=== PATIENT | female | born 1965 | race Caucasian/White ===

== ENCOUNTER 2019-08-07 19:34 | Emergency (ER) | payer SELFPAY ==
[2019-08-07] VITALS (7 sets, daily range): BP systolic 137–185; BP diastolic 97–123; PULSE 98–109; RESP 16–18; TEMP 36.5; O2SAT 94–98
--- NOTE | 2019-08-07 19:47 | ED_ITS ---
Entered by Reba Shine, acting as scribe for HPI - Wound/Laceration General: Chief Complaint: Wound/Laceration Stated Complaint: dog bite Time Seen by Provider: 08/07/19 19:47 Source: patient Mode of arrival: ambulatory Limitations: no limitations History of Present Illness: HPI narrative: 53 yo f came to the er for a laceration to the mouth. 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 Pt sates that she was trying to pull the dog back and her hand got twisted in the collar and she thinks that the dog thought that she was trying to hurt someone and the dog attacked. Pt has 2 open lacs on her lip. 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) Location: face (top lip in 2 spots) Associated symptoms: Denies chills, fever(s), nausea or vomiting Review of Systems Const: Denies: fever or chills Eyes: Denies: change in vision or blurry vision ENMT: Reports: swelling of lips/tongue; Denies: painful swallowing, bleeding gums, dental pain, Change in hearing or nose bleeds Card: Denies: chest pain, palpitations or irregular heart rhythm Resp: Denies: shortness of breath, productive cough, non-productive cough or wheezing GI: Denies: abdominal pain, nausea or vomiting : Denies: painful urination Musc: Denies: neck pain Skin/Breast: Denies: rash or itching Neuro: Denies: headache Psych: Reports: anxiety PFSH ED PFSH: Social History Smoking and tobacco status: current every day smoker Physical Exam Const: GENERAL APPEARANCE: well developed ORIENTATION/CONSCIOUSNESS: Yes oriented to person, Yes oriented to place and Yes oriented to time HENMT: COMMON NORMALS: normocephalic, external ears normal and external nose normal HEAD & SCALP: normocephalic NOSE: external nose normal and no nasal discharge EXTERNAL EAR: Yes external ears normal MOUTH: tongue normal and other TEETH & GINGIVA: no abnormal tooth and associated gingiva THROAT: posterior oropharynx normal; no peritonsillar mass Eye: COMMON NORMALS: PERRL, EOMs intact bilaterally and conjunctivae normal EYELID: eyelids normal CONJUNCTIVA: Yes conjunctivae normal PUPIL: Yes PERRL Neck/C-Spine: CERVICAL SPINE: Yes normal cervical lordosis and No cervical spine tenderness Chest: COMMONS NORMALS: inspection of chest normal CHEST: No tenderness Resp: COMMON NORMALS: clear to auscultation bilaterally EFFORT & INSPECTION: No tachypneic, No respiratory distress, No retractions, No uses accessory muscles and No tracheal deviation AUSCULTATION: clear to auscultation bilaterally, no rhonchi, no wheezes and lung sounds not diminished Cardio: COMMON NORMALS: regular rate and regular rhythm RATE: regular rate RHYTHM: regular rhythm HEART SOUNDS: no murmurs PERIPHERAL PULSES: radial pulses present GI: INSPECTION: No abdominal distension AUSCULTATION: No hyperactive bowel sounds and No hypoactive bowel sounds PALPATION: No guarding and No rigid PERCUSSION: no dullness to percussion and no tympanic to percussion : COMMON NORMALS: Yes no CVA tenderness BLADDER/KIDNEY EXAM: Yes no CVA tenderness Back/Pelvis: COMMON NORMALS: no CVA tenderness Neuro: SENSORIUM/ORIENTATION: Yes oriented to person, Yes oriented to place and Yes oriented to time Psych: COMMON NORMALS: mental status grossly normal Skin: COMMON NORMALS: no rashes or lesions noted GENERAL SKIN EXAM: no rashes or lesions noted Procedures Laceration Laceration 1: Site: lip (upper) Side (If applicable): right Size (cm): 4 Description: linear and involves alfred border Depth: [id number] Local Anesthetic: lidocaine 1% and bupivacaine 0.5% Amount of anesthesia used (mL): 5 Pre-repair: wound explored and irrigated extensively Skin layer closed with: nylon and vicryl Size (cm): 5-0 and 6-0 Number of sutures: 11 Technique: simple, interrupted Course Vital Signs: Vital signs: Vital Signs Temperature 97.7 F 08/07/19 19:41 Pulse Rate 100 08/07/19 22:10 Respiratory Rate 18 08/07/19 22:10 Blood Pressure 137/98 08/07/19 22:10 Pulse Oximetry 94 08/07/19 22:10 MDM - Wound/Laceration MDM Narrative: Medical decision making narrative: she did well. treated with augmentin. Discharge Plan Discharge Patient Disposition: Home, Self-Care Clinical Impression: Laceration Dog bite Qualifiers: Encounter type: initial encounter Qualified Code(s): W54.0XXA - Bitten by dog, initial encounter Condition: Stable Prescriptions: New Augmentin 875-125 mg tablet 1 tab PO BID Qty: 14 RF: 0 Percocet 5-325 mg tablet 1 tab PO Q6H PRN (Reason: pain) Qty: 10 RF: 0 Discharge Orders: Discharge Order (Routine); Ordered 08/07/19 Ordered By: Orlando Galeas Referrals: Roberto Johns MD [Family Provider] - 4-7 days Discharge Diet: Usual diet Patient Instructions: Animal Bite (ED), Laceration (ED) Activity Restrictions/Additional Instructions: You may return to work on Friday. Keep wound dry for 24 hours, then wash with soap and running water. Do not soak. Antibiotics as directed. Return for worsening swelling, pain, drainage despite treatment. You should have a wound check in 5 days or so. Sutures should come out in around 7 days. Stand Alone Forms: Work/School Release Discharge Date/Time: 08/07/19 22:11 Coding Level of Care Code ED Certified Flex Endoscope Reprocessor for Chg Fwd Exam Comprehensive The documentation recorded by the Rl ceron Stephanie Lyn, accurately reflects the service I personally performed and the decisions made by Adal petersen Jeremy John, DO Aug 07, 2019 19:34
[2019-08-07] MEDS: ondansetron 2 mg/ML SDV 2 mL 4 MG IVP (19:59)
[2019-08-07] MEDS: fentaNYL 50 mcg/mL INJ 2mL 100 MCG IVP ×2 (19:59→20:52)
[2019-08-07] MEDS: oxyCODONE-APAP 5-325 mg Tablet 2 TAB PO (22:03)
[2019-08-07] MEDS: amoxicillin-clav 875-125 mg Tablet 1 TAB PO (22:04)
== END 2019-08-07 22:11 | disposition home or self-care (01) ==
PROVIDERS: Emergency Provider Emergency Medicine; Family Provider Family Medicine
DX: S01.511A Laceration without foreign body of lip, initial encounter (principal); F17.200 Nicotine dependence, unspecified, uncomplicated; W54.0XXA Bitten by dog, initial encounter
CPT/HCPCS: 12052; 12345; 96374; 96375; 96376; 99282; 99283; J2405; J3010

== ENCOUNTER 2020-04-15 13:58 | Observation (INO) | payer MEDICAID, SELFPAY ==
[2020-04-15] VITALS (14 sets, daily range): BP systolic 128–157; BP diastolic 73–98; PULSE 64–100; RESP 16–20; TEMP 36.2–37.1; O2SAT 90–97; BMI 27.6
--- NOTE | 2020-04-15 | SCC_ITS ---
Cystoscopy, RIGHT: Retrograde ureteropyelogram, ureteroscopy, ureteral stent placement 47.9 seconds of fluoroscopic guidance, for a cumulative dose of 12.99 mGy, was provided to Dr. Spence by the radiology department. C-arm images of the abdomen were saved for the patient's permanent record. [facility]
--- NOTE | 2020-04-15 14:13 | CTR_ITS ---
PROCEDURE INFORMATION: Exam: CT Abdomen And Pelvis With Contrast Exam date and time: 04/15/2020 2:25 PM Age: 54 years old Clinical indication: Abdominal pain; Epigastric; Prior surgery; Surgery date: 6+ months; Surgery type: Csection; Patient HX: Abd pain x2 wks TECHNIQUE: Imaging protocol: Computed tomography of the abdomen and pelvis with intravenous contrast. Radiation optimization: All CT scans at this facility use at least one of these dose optimization techniques: automated exposure control; mA and/or kV adjustment per patient size (includes targeted exams where dose is matched to clinical indication); or iterative reconstruction. Contrast material: OMNIPAQUE 300; Contrast volume: 95 ml; Contrast route: INTRAVENOUS (IV); COMPARISON: No relevant prior studies available. RADIATION DOSE METRICS: Total DLP (mGy-cm): 527.62 FINDINGS: Pleural space: Small right pleural effusion with adjacent compressive atelectasis. Liver: Regional decreased attenuation of the left hepatic lobe at the ligamentum teres suggestive of focal fatty infiltration. There are multiple well-circumscribed cyst with benign features in the liver the larger of which measures 3.1 cm. Follow-up is not necessary. Gallbladder and bile ducts: Normal. No calcified stones. No ductal dilation. Pancreas: Normal. No ductal dilation. Spleen: Normal. No splenomegaly. Adrenal glands: Normal. No mass. Kidneys and ureters: Right kidney enhances less prominently compared to the left and is somewhat inhomogeneous. There is prominent enhancement of the right ureteral urothelium. Stomach and bowel: Unremarkable. No obstruction. No mucosal thickening. Appendix: No evidence of appendicitis. Intraperitoneal space: Unremarkable. No free air. No significant fluid collection. Retroperitoneal space: There are peripherally enhancing fluid collections in the right retroperitoneal spaces the largest of which measures 16.1 x 9.7 cm in the craniocaudad/transverse dimensions, in the right perirenal space. These are suspicious for abscess formations. There is moderate to severe right hydronephrosis and hydroureter with adjacent inflammatory stranding. Vasculature: Unremarkable. No abdominal aortic aneurysm. Lymph nodes: There are multiple retroperitoneal lymph nodes some of which are enlarged and or rounded. These are more numerous on the right. Urinary bladder: Bladder wall is indistinct and thickened. Reproductive: There is complex fluid density in the endometrial canal fundal region measuring 6.1 cm in the transverse dimension. Bones/joints: Unremarkable. No acute fracture. Soft tissues: Unremarkable. CT/CT abdomen pelvis w con* [id number] IMPRESSION: 1. Findings as stated above are consistent with an ascending urinary tract infection involving the bladder, right ureter, and possibly right kidney. 2. There are multiple peripherally enhancing fluid collection suspicious for abscess formations along the right retroperitoneum. 3. There is complex fluid density in the endometrial canal at the fundal region. Consider pelvic ultrasound for further evaluation. 4. There is retroperitoneal lymphadenopathy. Radiation Dose CTDIVOL = (mGy): DLP = 527.62 (mGy-cm)
--- NOTE | 2020-04-15 14:34 | W.ED.ABDPA2 ---
HPI - Abdominal Pain General: Chief Complaint: Abdominal Pain Stated Complaint: ABDOMEN PAIN Time Seen by Provider: 04/15/20 14:06 History of Present Illness: HPI narrative: This patient is a 54-year-old female who comes in today with abdominal pain. Her symptoms started about 2 weeks ago after eating a salad. She began having pain across her whole abdomen and then radiating up her right side. The pain at night was severe and she vomited once. She had loss of appetite for about a week. She did not have any bowel movements for several days. She took some laxatives and now is having regular bowel movements again. She continues to have pain across her abdomen which is slightly worse on the right side. She said her appetite is back and she is able to eat without increased symptoms. She is not having any further vomiting. Bowel movements have been normal. No urinary symptoms. She is postmenopausal and her last regular period was about 4 years ago. She does have some spotting off and on and most recently had some spotting right before this episode of pain occurred. She said she is feeling a little better but pressure from her family and her boss made her come in today to get checked. She is worried that there is something serious causing her symptoms. She denies fever, chest pain, cough, shortness of breath. She does have back pain which she thinks is from sleeping in her recliner is sleeping in her bed is not comfortable with her abdominal pain. MD elicited complaint: abdominal pain Pertinent past history: constipation Onset (ago): week(s) (2) Pain Consistency: constant Location: Diffuse and RUQ Severity: moderate Quality: aching and fullness Radiation: none Migration to: no migration Exacerbating factors: nothing Relieving factors: nothing Associated Symptoms: Reports anorexia (With initial symptoms, not now) and bloating; Denies chills and fever(s) Review of Systems General: Reports: 10 or more systems reviewed and unremarkable except in HPI and below Const: Denies: fever(s), chills, fatigue or malaise Eyes: Denies: change in vision ENMT: Denies: odynophagia Card: Denies: chest pain or swelling of feet/ankles Resp: Denies: dyspnea, productive cough or non-productive cough GI: Reports: bloating : Denies: flank pain or difficulty voiding Musc: Denies: neck pain Skin/Breast: Denies: rash Neuro: Denies: headache(s), numbness in extremities or weakness in extremities Jose Manuel/Lymph: Denies: easy bruising or easy bleeding PFSH ED PFSH: Medical History (Updated 04/16/20 @ 08:46 by Louis Spence MD) Hypertension Surgical History (Updated 04/16/20 @ 08:46 by Louis Spence MD) History of History of ureter stent Extrinsic ureteral obstruction stented emergently on 04/15/2020. 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 Family History (Updated 04/15/20 @ 17:05 by Louis Spence MD) Other Diabetes Denies family history of Clotting disorder Anesthesia complication Social History (Updated 04/15/20 @ 17:06 by Louis Spence MD) Smoking and tobacco status: current every day smoker Lives independently: Yes Marital status details: Physical Exam Const: COMMON NORMALS: no acute distress, patient oriented x3, no limitations and alert GENERAL APPEARANCE: cooperative and comfortable HENMT: HEAD & SCALP: normal to inspection FACE & SINUS: normal facial exam Eye: GENERAL EYE: appearance normal, both eyes and all related structures Neck/C-Spine: COMMON NORMALS: supple, no meningeal signs and no JVD Chest: COMMONS NORMALS: normal inspection of the chest Resp: COMMON NORMALS: normal respiratory effort, No use of accessory muscles and clear to auscultation bilaterally AUSCULTATION: clear to auscultation bilaterally Cardio: COMMON NORMALS: no JVD, regular rate, regular rhythm and No murmurs present (Cardio) RATE: regular rate RHYTHM: regular rhythm GI: COMMON NORMALS: Normal to inspection, nondistended, normoactive bowel sounds present INSPECTION: Yes normal to inspection AUSCULTATION: Yes Hypoactive bowel sounds present PALPATION: Yes Firmness to palpation present (GI) and Yes Tenderness to palpation present (GI) Back/Pelvis: COMMON NORMALS: thoracic and lumbar spine normal to inspection Extremity: COMMON NORMALS: normal to inspection Neuro: COMMON NORMALS: patient oriented x3, moves all extremities, no focal motor deficits and no sensory deficits noted SENSORIUM/ORIENTATION: Yes alert MENINGEAL SIGNS: Yes no meningeal signs Psych: COMMON NORMALS: mental status grossly normal, cooperative and normal affect Skin: COMMON NORMALS: no rashes or lesions noted and turgor normal GENERAL SKIN EXAM: no rashes or lesions noted and turgor normal Course ED course: Patient with multiple concerning findings on her CT scan. The most pressing is a urinoma and leakage of urine into the peritoneum. Dr. Spence plans to take her to the OR right away for a stent. He asks me to consult Dr. Mims regarding the other findings on the CT. Dr. Mims requested an ultrasound before she goes to the OR in case he wants to try to do a biopsy or anything at that time. Patient understands the plan and is understandably anxious about the findings. Vital Signs: Vital signs: Vital Signs Temperature 98.3 F 04/16/20 09:27 Pulse Rate 73 04/16/20 09:27 Respiratory Rate 16 04/16/20 09:27 Blood Pressure 145/78 04/16/20 09:27 Pulse Oximetry 92 04/16/20 09:27 MDM - Abdominal Pain Lab Data: Labs: Lab Results 04/15/20 04/15/20 04/15/20 Range/Units 14:23 14:23 14:23 WBC 14.8 H (4.0-10.0) 10^3/ uL RBC 3.95 L (4.1-5.3) 10^6/u L Hgb 12.1 (11.5-15.3) g/dL Hct 36.7 L (37.0-47.0) % MCV 92.9 (81-99) fL MCH 30.6 (28.0-34.0) pg MCHC 33.0 (30.0-36.0) g/dL RDW 12.2 (12.1-15.1) % Plt Count 564 H (130-400) 10^3/c mm MPV 7.9 (7.4-10.4) fL Neut % (Auto) 85.3 % Lymph % (Auto) 7.4 % [place] % (Auto) 5.5 % Eos % (Auto) 0.3 % Baso % (Auto) 0.4 % Neut # (Auto) 12.67 H (1.8-7.7) 10^3/u L Lymph # (Auto) 1.1 (0.8-4.8) 10^3/u L [place] # (Auto) 0.8 (0.2-0.9) 10^3/u L Eos # (Auto) 0.0 (0.0-0.8) 10^3/u L Baso # (Auto) 0.1 (0.0-0.1) 10^3/u L Nucleated RBC % (a uto) 0 % Nucleated RBCs # 0.0 /100WBC Sodium 131 L (136-145) mmol/L Potassium 4.4 (3.5-5.1) mmol/L Chloride 94 L (98-107) mmol/L Carbon Dioxide 24 (22-29) mmol/L Anion Gap 17.4 (5-19) BUN 10 (6-20) mg/dL Creatinine 0.8 (0.5-0.9) mg/dL GFR Calculation 74.7 L (90-130) mL/min Glucose 213 H (65-115) mg/dL Calculated Osmolal ity 277 L (285-295) mOsm/k g Lactic Acid 1.4 (0.5-2.2) mmol/L Calcium 9.0 (8.5-10.5) mg/dL Total Bilirubin 0.3 (0.15-1.2) mg/dL AST 24 (0-32) U/L ALT 43 H (0-33) U/L Alkaline Phosphata se 108 H (35-105) IU/L Total Protein 7.2 (6.6-8.7) g/dL Albumin 3.6 (3.5-5.2) g/dL Globulin 3.6 (1.3-4.6) g/dL Lipase 33 (13-60) U/L Urine Color (Yellow) Urine Appearance (CLEAR) Urine pH (5-7) Ur Specific Gravit y (1.005-1.030) Urine Protein (Negative) Urine Glucose (UA) (Normal) Urine Ketones (Negative) Urine Blood (Negative) Urine Nitrate (Negative) Urine Bilirubin (Negative) Urine Urobilinogen (Negative) mg/dL Ur Leukocyte Jyotsna ase (Negative) Urine RBC (0-2) /hpf Urine WBC (0-5) /hpf Ur Squamous Epith Cells (0-5) /hpf Ur Transition Epit h Cell /hpf Amorphous Sediment Urine Bacteria (NONE) /hpf Urine Mucus /hpf 11/14/20 Range/Units 15:09 WBC (4.0-10.0) 10^3/ uL RBC (4.1-5.3) 10^6/u L Hgb (11.5-15.3) g/dL Hct (37.0-47.0) % MCV (81-99) fL MCH (28.0-34.0) pg MCHC (30.0-36.0) g/dL RDW (12.1-15.1) % Plt Count (130-400) 10^3/c mm MPV (7.4-10.4) fL Neut % (Auto) % Lymph % (Auto) % [place] % (Auto) % Eos % (Auto) % Baso % (Auto) % Neut # (Auto) (1.8-7.7) 10^3/u L Lymph # (Auto) (0.8-4.8) 10^3/u L [place] # (Auto) (0.2-0.9) 10^3/u L Eos # (Auto) (0.0-0.8) 10^3/u L Baso # (Auto) (0.0-0.1) 10^3/u L Nucleated RBC % (a uto) % Nucleated RBCs # /100WBC Sodium (136-145) mmol/L Potassium (3.5-5.1) mmol/L Chloride (98-107) mmol/L Carbon Dioxide (22-29) mmol/L Anion Gap (5-19) BUN (6-20) mg/dL Creatinine (0.5-0.9) mg/dL GFR Calculation (90-130) mL/min Glucose (65-115) mg/dL Calculated Osmolal ity (285-295) mOsm/k g Lactic Acid (0.5-2.2) mmol/L Calcium (8.5-10.5) mg/dL Total Bilirubin (0.15-1.2) mg/dL AST (0-32) U/L ALT (0-33) U/L Alkaline Phosphata se (35-105) IU/L Total Protein (6.6-8.7) g/dL Albumin (3.5-5.2) g/dL Globulin (1.3-4.6) g/dL Lipase (13-60) U/L Urine Color Yellow (Yellow) Urine Appearance Hazy A (CLEAR) Urine pH 7 (5-7) Ur Specific Gravit y 1.000 L (1.005-1.030) Urine Protein 1+ H (Negative) Urine Glucose (UA) Norm (Normal) Urine Ketones Negative (Negative) Urine Blood 3+ H (Negative) Urine Nitrate Negative (Negative) Urine Bilirubin Neg (Negative) Urine Urobilinogen Norm (Negative) mg/dL Ur Leukocyte Jyotsna ase 2+ H (Negative) Urine RBC 25-40 H (0-2) /hpf Urine WBC 80-100 H (0-5) /hpf Ur Squamous Epith Cells 25-40 H (0-5) /hpf Ur Transition Epit h Cell 5-10 /hpf Amorphous Sediment Not Reportable Urine Bacteria 2+ H (NONE) /hpf Urine Mucus 1+ /hpf Discharge Plan Discharge Patient Disposition: Admitted As Inpatient Admit Provider: Louis Spence Condition: Stable Discharge Diet: Usual diet Discharge Activity: Increase activity as tolerated Coding Level of Care Code ED Duty Officer for Neo Fwd Exam Comprehensive
[2020-04-15 14:35] LABS: Basophils # 0.1 10^3/uL (0.0-0.1); Basophils % 0.4 %; Eosinophils % 0.3 %; Hematocrit 36.7 % (37.0-47.0); Hemoglobin 12.1 g/dL (11.5-15.3); Lymphocytes # 1.1 10^3/uL (0.8-4.8); Lymphocytes % 7.4 %; Mean Corpuscular Hemoglobin 30.6 pg (28.0-34.0); Mean Corpuscular Volume 92.9 fL (81-99); Mean Platelet Volume 7.9 fL (7.4-10.4); Monocytes # 0.8 10^3/uL (0.2-0.9); Monocytes % 5.5 %; Neutrophils # 12.67 10^3/uL (1.8-7.7); Neutrophils % 85.3 %; Nucleated Red Blood Cells % 0 %; Platelet Count 564 10^3/cmm (130-400); Red Blood Count 3.95 10^6/uL (4.1-5.3); Red Cell Distribution Width 12.2 % (12.1-15.1); White Blood Count 14.8 10^3/uL (4.0-10.0)
[2020-04-15] MEDS: iohexol 300 mg/mL 100 mL Btl IV (14:35)
[2020-04-15 14:59] LABS: Alanine Aminotransferase 43 U/L (0-33); Albumin Level 3.6 g/dL (3.5-5.2); Alkaline Phosphatase 108 IU/L (35-105); Aspartate Amino Transferase 24 U/L (0-32); Blood Urea Nitrogen 10 mg/dL (6-20); Carbon Dioxide 24 mmol/L (22-29); Chloride 94 mmol/L (98-107); Globulin 3.6 g/dL (1.3-4.6); Glomerular Filtration Rate 74.7 mL/min (90-130); Glucose 213 mg/dL (65-115); Lipase 33 U/L (13-60); Osmolality Calculated 277 mOsm/kg (285-295); Sodium 131 mmol/L (136-145); Total Bilirubin 0.3 mg/dL (0.15-1.2); Total Protein 7.2 g/dL (6.6-8.7)
[2020-04-15 15:00] LABS: Lactic Sepsis W/Reflex 1.4 mmol/L (0.5-2.2)
[2020-04-15 15:04] LABS: Anion Gap 17.4 (5-19); Potassium 4.4 mmol/L (3.5-5.1)
[2020-04-15 15:28] LABS: Add Urine Microscopic? YES; Bilirubin Urine Neg (Negative); Blood Urine 3+ (Negative); Glucose Urine UA Norm (Normal); Ketones Urine Negative (Negative); Leukocyte Esterase Urine 2+ (Negative); Nitrate Urine Negative (Negative); Protein Urine 1+ (Negative); Urine Appearance Hazy (CLEAR); Urine Color Yellow (Yellow); Urobilinogen Urine Norm (Negative); pH Urine 7 (5-7)
[2020-04-15 15:36] LABS: RBC Urine 25-40 /hpf (0-2); WBC Urine 80-100 /hpf (0-5)
[2020-04-15] MEDS: sodium chloride 0.9% 1,000 ML 999 ML IV (15:36)
[2020-04-15 15:37] LABS: Bacteria Urine 2+ /hpf; Squamous Epithelial Cell Urine 25-40 /hpf (0-5)
[2020-04-15 15:38] LABS: Add Urine Culture? No; Mucus Urine 1+ /hpf
--- NOTE | 2020-04-15 16:19 | USR_ITS ---
PROCEDURE INFORMATION: Exam: US Nonobstetric Pelvis; Complete Exam date and time: 04/15/2020 4:47 PM Age: 54 years old Clinical indication: Pelvic pain; Prior surgery; Surgery date: 6+ months; Surgery type: H/o ; Additional info: Eval endometrial fluid collection TECHNIQUE: Imaging protocol: Transabdominal pelvic nonobstetric ultrasound. Complete exam. Real time ultrasound with image documentation. COMPARISON: CT abdomen pelvis w con* [id number] 04/15/2020 2:33 PM FINDINGS: Uterus/cervix: The uterus measures 12.1 x 6.6 x 8.3 cm. There is a complex fluid collection in the endometrial canal in the region of the uterine fundus measuring 3.5 x 3.8 x 7.1 cm. There are ill-defined heterogeneous regions in the mid uterine myometrium below the cystic lesion containing calcifications. Right adnexa: Not well seen. Left adnexa: Not well seen. Intraperitoneal space: No intraperitoneal free fluid. Urinary bladder: Bladder is more optimally visualized on the CT scan. Please see that report. US/US pelvic complete* [id number] IMPRESSION: 1. There is a complex fluid collection in the endometrial canal in the region of the uterine fundus. Ob Gyne consult recommended. 2. Heterogeneous regions in the uterine myometrium containing calcifications are not well seen however may represent uterine fibroids.
--- NOTE | 2020-04-15 16:55 | P.HP_ITS ---
Providers/Chief Complaint Admitting Physician: Bebe Primary Care Provider: Ora WESLEY Chief Complaint: ABDOMEN PAIN History of Present Illness Megan Dillon is a 54 year old female who I evaluated for the first time tonight at the request of the emergency department for right ureteral obstruction of unclear etiology (possible extrinsic obstruction), urinary extravasation, and abnormal uterus with pelvic lymphadenopathy on CT scan. She presented with complaints of at least 2+ weeks of abdominal pain more right greater than left but also fairly diffuse abdominal pain. No fever or chills. Has been feeling poorly. Denies unexplained weight loss. Also reports that she has had increasing urinary frequency and associates some of that with onset of use of blood pressure medication. Denies a history of stones. Her last Pap smear pelvic exam per her report was >20 years ago. Work-up in the emergency department: 1. 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 - Abnormal uterus with complex fluid density in the endometrial canal - Retroperitoneal lymphadenopathy right greater than left. 2. WBC 14.8, hemoglobin 12.1, glucose 213, ALT 43 alkaline phosphatase 108, urinalysis showed 25-40 RBCs, 8200 white cells, urine specimen was contaminated there with 25-40 epithelial cells. 2+ bacteria but nitrite negative. 3. Physical exam: Abdominal tenderness but no evidence of surgical abdomen. Right pain > left. Given the above findings and significant symptoms I recommended cystoscopy, right retrograde ureteropyelogram, right ureteral stent placement if possible. Pelvic ultrasound is pending. I believe the request has been made for gynecology to become involved at least by looking at the CT scan and see if there is anything in addition to the above that they would prefer to be done. Review of Systems Const: Reports: malaise; Denies: fever(s) or chills Eyes: Denies: change in vision or blurry vision ENMT: Reports: throat pain Card: Denies: chest pain, palpitations or irregular heart rhythm Resp: Denies: dyspnea, productive cough or hemoptysis GI: Reports: abdominal pain and nausea : Reports: flank pain and urinary frequency; Denies: dysuria Musc: Denies: joint redness or joint warmth Skin/Breast: Denies: rash or changing lesions Neuro: Denies: headache(s), confusion, Slurred speech present or seizure-like activity Psych: Reports: anxiety and depression Endo: Denies: flushing Jose Manuel/Lymph: Denies: easy bruising or easy bleeding All/Imm: Denies: urticaria or acute wheezing Medications/Allergies Home Medications Medication Instructions Recorded Confirmed Last Taken Type escitalopram oxalate 10 mg PO DAILY 04/15/20 04/15/20 04/14/20 History metoprolol tartrate 25 mg PO BID 04/15/20 04/15/20 04/15/20 History Allergies Allergy/AdvReac Type Severity Reaction Status Date / Time No Known Allergies Allergy Unverified 04/15/20 14:44 PFSH Acute PFSH: Medical History (Updated 04/15/20 @ 17:11 by Louis Spence MD) Hypertension Surgical History (Updated 04/15/20 @ 17:05 by Louis Spence MD) History of Family History (Updated 04/15/20 @ 17:05 by Louis Spence MD) Other Diabetes Denies family history of Clotting disorder Anesthesia complication Social History (Updated 04/15/20 @ 17:06 by Louis Spence MD) Smoking and tobacco status: current every day smoker Lives independently: Yes Marital status details: Vitals/I&O/Wt Last Vital Signs Temp 97.9 F 04/15/20 14:01 Pulse 88 04/15/20 15:39 Resp 18 04/15/20 15:39 BP 134/86 04/15/20 15:39 Pulse Ox 92 04/15/20 15:39 Weight last 48 hrs Weight 151 lb Physical Exam 2 Const: COMMON NORMALS: no acute distress, alert and well nourished GENERAL APPEARANCE: well kempt and well developed ORIENTATION/CONSCIOUSNESS: not confused HENMT: HEAD & SCALP: normocephalic and atraumatic Eye: COMMON NORMALS: conjunctivae normal and no scleral icterus Neck/C-Spine: COMMON NORMALS: full ROM GENERAL: Yes normal visual inspection Lymph: LYMPHATIC: no lymphadenopathy noted and no lymphedema noted Chest: COMMONS NORMALS: normal inspection of the chest Resp: COMMON NORMALS: normal respiratory effort EFFORT & INSPECTION: No l abored and No Actively coughing AUSCULTATION: clear to auscultation bilaterally (Coarse breath sounds) and no wheezes Cardio: COMMON NORMALS: no JVD, regular rate, regular rhythm and No murmurs p resent (Cardio) GI: PALPATION: Yes Soft to palpation, Yes Tenderness to palpation present (GI) Details: RLQ and RUQ and No Palpable mass present : BLADDER/KIDNEY EXAM: Yes bladder normal to palpation and Yes CVA tenderness on the right Extremity: COMMON NORMALS: no clubbing, cyanosis or edema Neuro: COMMON NORMALS: no focal motor deficits SENSORIUM/ORIENTATION: Yes alert Psych: COMMON NORMALS: mental status grossly normal APPEARANCE: Yes grossly normal and Yes well kempt ATTITUDE: Yes calm and Yes engaged Skin: COMMON NORMALS: no rashes or lesions noted and no jaundice Data : 04/15/20 14:23 04/15/20 14:23 A&P Assessment and plan (1) Hydronephrosis of right kidney: Evidence of severe obstruction of the right ureter. Cannot rule out a stone but do not see one on CT scan. 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 Status: Acute (2) Renal colic on right side: Consistent with renal colic although she does have more diffuse abdominal pain as well Status: Acute (3) Pelvic lymphadenopathy: Identified on CT scan. Etiology unclear Status: Acute (4) Abnormal ultrasound of uterus: Films were reviewed and consider the above information for this visit by gynecology and felt that there was no emergency for tonight but does need to be further worked up. We will plan on that as an outpatient basis pending tonig ht's results with stent placement etc. Status: Acute (5) Depression with anxiety: Status: Acute Attestations Medical Necessity Statement*: Patient was having debilitating pain progressive over the last couple weeks and has high-grade right ureteral obstruction requiring drainage. 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
--- NOTE | 2020-04-15 17:14 | ANES.PREANE2 ---
Pre-Anesthetic Assessment Pre-Anesthetic Assessment: Height/Weight: Height 1.57 m Weight 68.492 kg Temp Pulse Resp BP Pulse Ox 97.9 F 88 18 154/98 90 04/15/20 14:01 04/15/20 15:39 04/15/20 17:01 04/15/20 17:01 04/15/20 17:01 Preop Diagnosis: KS Proposed Procedure: Operation Date: 04/15/20 17:20 Proposed Procedures p Cystoscopy(Not Applicable) - Louis Spence MD s Retrograde Pyelogram(Right) - Louis Spence MD s Ureteral Stent Placement(Right) - Louis Spence MD s Possible Ureteroscopy(Right) - Louis Spence MD Was Beta [place] taken within 24 hours: Yes Last intake: 1200 food Last Intake: 14:00 Social: Social History: Alcohol (3 beer per day) and Tobacco Packs per day: 1ppd Pack years: 35+ Exam: Pre-Anes Outpt Exam: alert, oriented x 3, clear to auscultation bilaterally and regular rate & rhythm Airway: Submandibular: WNL Cervical ROM: WNL MP: 2 Dentition: Full Pulmonary: Pulmonary: None reported CV/HEM: CV/HEM: HTN : Comments: [place] Hepatic: Hepatic: None reported GI: GI: None reported Metabolic: Metabolic: None reported Musc/skel: Musc/skel: None reported Neuropsych: Neuropsych: Anxiety and Depression Anesthetic Plan: ASA status: 2E Anesthesia: Anesthesia Evaluation and General PFSH Anesthesia PFSH: Medical History (Updated 04/15/20 @ 17:11 by Louis Spence MD) Hypertension Surgical History (Updated 04/15/20 @ 17:05 by Louis Spence MD) History of Family History (Updated 04/15/20 @ 17:05 by Louis Spence MD) Other Diabetes Denies family history of Clotting disorder Anesthesia complication Social History (Updated 04/15/20 @ 17:06 by Louis Spence MD) Smoking and tobacco status: current every day smoker Lives independently: Yes Marital status details: Data Anesthesia CBC & Chem 7: 04/15/20 14:23 04/15/20 14:23 Other Labs: Laboratory Results - last 48 hr 04/15/20 04/15/20 04/15/20 14:23 14:23 14:23 WBC 14.8 H RBC 3.95 L Hgb 12.1 Hct 36.7 L MCV 92.9 MCH 30.6 MCHC 33.0 RDW 12.2 Plt Count 564 H MPV 7.9 Neut % (Auto) 85.3 Lymph % (Auto) 7.4 [place] % (Auto) 5.5 Eos % (Auto) 0.3 Baso % (Auto) 0.4 Neut # (Auto) 12.67 H Lymph # (Auto) 1.1 [place] # (Auto) 0.8 Eos # (Auto) 0.0 Baso # (Auto) 0.1 Nucleated RBC % (auto) 0 Nucleated RBCs # 0.0 Sodium 131 L Potassium 4.4 Chloride 94 L Carbon Dioxide 24 Anion Gap 17.4 BUN 10 Creatinine 0.8 GFR Calculation 74.7 L Glucose 213 H Calculated Osmolality 277 L Lactic Acid 1.4 Calcium 9.0 Total Bilirubin 0.3 AST 24 ALT 43 H Alkaline Phosphatase 108 H Total Protein 7.2 Albumin 3.6 Globulin 3.6 Lipase 33 Urine Color Urine Appearance Urine pH Ur Specific [place] Urine Protein Urine Glucose (UA) Urine Ketones Urine Blood Urine Nitrate Urine Bilirubin Urine Urobilinogen Ur Leukocyte Esterase Urine RBC Urine WBC Ur Squamous Epith Cells Ur Transition Epith Cell Amorphous Sediment Urine Bacteria Urine Mucus 04/15/20 15:09 WBC RBC Hgb Hct MCV MCH MCHC RDW Plt Count MPV Neut % (Auto) Lymph % (Auto) [place] % (Auto) Eos % (Auto) Baso % (Auto) Neut # (Auto) Lymph # (Auto) [place] # (Auto) Eos # (Auto) Baso # (Auto) Nucleated RBC % (auto) Nucleated RBCs # Sodium Potassium Chloride Carbon Dioxide Anion Gap BUN Creatinine GFR Calculation Glucose Calculated Osmolality Lactic Acid Calcium Total Bilirubin AST ALT Alkaline Phosphatase Total Protein Albumin Globulin Lipase Urine Color Yellow Urine Appearance Hazy A Urine pH 7 Ur Specific [place] 1.000 L Urine Protein 1+ H Urine Glucose (UA) Norm Urine Ketones Negative Urine Blood 3+ H Urine Nitrate Negative Urine Bilirubin Neg Urine Urobilinogen Norm Ur Leukocyte Esterase 2+ H Urine RBC 25-40 H Urine WBC 80-100 H Ur Squamous Epith Cells 25-40 H Ur Transition Epith Cell 5-10 Amorphous Sediment Not Reportable Urine Bacteria 2+ H Urine Mucus 1+ Cardiac Studies: No Data to Display
--- NOTE | 2020-04-15 17:22 | PM.OP ---
Operative Report Date of procedure: April 15, 2020 Pre-op Diagnosis: Right ureteral obstruction high-grade with refractory symptoms Procedure Done: Cystoscopy, RIGHT: Retrograde ureteropyelogram, ureteroscopy, ureteral stent placement Pathology: none sent Surgeon: Bebe Anesthesia: General Estimated blood loss: Minimal Urine output: Not measured Condition: stable Disposition: PACU Brief History: Megan is a 54-year-old white female who I evaluated for the first time tonight at the request of the emergency department for high-grade obstruction of her right ureter at the level apparently at the pelvis. Etiology is unclear. She does have some lymphadenopathy and abnormal uterus. She has a large fluid collection in the right retroperitoneum that appears to me to be consistent with a urinoma. There was some concern on the CT scan report about possible abscess but that does not appear to be the clinical picture. She does have a mildly elevated white count. Her urine was contaminated. [facility] [employer] [employer] was consulted and they look at the CT scan and ultrasound preoperatively and felt that work-up needed to be completed and could easily be done on outpatient basis. Gynecology on-call was delivering a baby at the time of this evaluation intraoperatively. Procedure: After emergent evaluation examination and obtaining of informed consent she was taken to the operating suite on 04/15/2020 where general anesthesia was administered without difficulty after appropriate timeout was performed, SCDs confirmed to be functioning, preoperative antibiotics administered, [id number] protocol confirmed. Prepped and draped in the usual sterile fashion in dorsolithotomy position paying careful attention to avoiding pressure points. 21 [place]ese cystoscope with 30 degree lens was introduced to the urethral meatus and advanced into the bladder under videoscopy. Bladder was systematically examined. There was a significant impression on the posterior aspect of the bladder extending from just below the dome to below the trigone consistent with the enlarged uterus seen on CT scan. Both orifices were identified with clear reflux. There was no intrinsic bladder pathology. An 8 [place]ese cone-tipped catheter was intubated into the right ureteral orifice for right retrograde ureteropyelogram: Just proximal to the right ureteral orifice there was a distinctly strictured/narrowed luminal area extending approximately 2-1/2 to 3 cm proximal where an abrupt transition to a very dilated ureter occurred. The ureter was dilated all the way up to the renal pelvis as consistent with the CT scan findings. There was no filling defect noted. Contrast was retained at the proximal aspect of the narrowed area Flexible tip guidewire was advanced up the right ureter and required a open ureteral catheter for enough torque to pass it through this area but this wire did advance easily after entering the ureteral orifice. The ureteral catheter was advanced to the mid ureter to provide some torque to pass the wire through the tortuous more proximal aspect into the upper pole calyx confirmed via fluoroscopic monitoring. The distal ureter was then dilated with a 15 Cong[place]ese 4 cm balloon with no waist at 4 kelvin. The balloon traversed the entire strictured area. A 7 [place]ese offset semirigid ureteroscope was then advanced over the guidewire through this area which was carefully inspected on both entry and withdrawal. There was no obvious intrinsic abnormality, dense stricture or intraluminal process such as a stone to account for this. It appeared to be extrinsic regarding the stricturing. The ureter proximal to this point was very dilated. The scope was passed up to the pelvic vessels and no stones were identified. No other pathology was seen. The cystoscope was then backloaded over the guidewire and a 7 [place]ese by 28 cm (to account for significant tortuosity) ureteral stent without string was then easily advanced over the guidewire through the cystoscope into appropriate position as confirmed via fluoroscopy and cystoscopy. Bladder was drained. She tolerated procedure without complications Was awakened in the operating room and returned to the recovery in stable condition. PLANS: 1. Observe overnight. A.m. labs. Symptomatic control as needed. 2. If she is doing well tomorrow will discharge with plan to follow-up with gynecology for further evaluation of the uterine abnormality, pelvic lymphadenopathy, and now evidence of what appears to be an extrinsic process to the right ureter.
[2020-04-15] MEDS: levofloxacin-dextrose 5 % 500 MG/100 ML PREMIX 100 MG IV (17:30)
--- NOTE | 2020-04-15 17:31 | SC_ITS ---
WS: [id number] AP C-arm images of the pelvis are submitted for evaluation. Radiographic contrast injection into the distal right ureter at the UV junction shows a probable stri cture of the distal right ureter. There is dilatation of the distal right ureter just above the stric ture. A small amount of contrast is seen in the right lateral aspect of the urinary bladder. SC/C-arm [place] for Urology IMPRESSION: 1. 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
[2020-04-15] MEDS: iohexol 300 mg/mL 50 mL Btl (OR ONLY) XX (17:48)
--- NOTE | 2020-04-15 17:56 | ANES.PREANE2 ---
Pre-Anesthetic Assessment Pre-Anesthetic Assessment: Height/Weight: Height 1.57 m Weight 68.492 kg Temp Pulse Resp BP Pulse Ox 97.1 F L 83 16 142/96 93 04/15/20 17:10 04/15/20 17:10 04/15/20 17:10 04/15/20 17:10 04/15/20 17:10 Preop Diagnosis: Right ureteral obstruction high-grade with refractory symptoms Proposed Procedure: Operation Date: 04/15/20 17:20 Proposed Procedures p Cystoscopy(Not Applicable) - Louis Spence MD s Retrograde Pyelogram(Right) - Louis Spence MD s Ureteral Stent Placement(Right) - Louis Spence MD s Possible Ureteroscopy(Right) - Louis Spence MD Familial anesthetic complications: none Was Beta [place] taken within 24 hours: Yes Last intake: 1200 Last Intake: 14:00 Social: Social History: Alcohol (3 beer daily) and Tobacco Packs per day: 1ppd Pack years: 35+ Exam: Pre-Anes Outpt Exam: alert, oriented x 3, clear to auscultation bilaterally and regular rate & rhythm Airway: Submandibular: WNL Cervical ROM: WNL MP: 2 Dentition: Full Pulmonary: Pulmonary: None reported CV/HEM: CV/HEM: HTN : : None reported Hepatic: Hepatic: None reported GI: GI: None reported Metabolic: Metabolic: None reported Musc/skel: Musc/skel: None reported Neuropsych: Neuropsych: Anxiety and Depression Anesthetic Plan: ASA status: 2E Anesthesia: General Risk of > 500 ml blood loss (7ml/kg in children): No PFSH Anesthesia PFSH: Medical History (Updated 04/15/20 @ 17:11 by Louis Spence MD) Hypertension Surgical History (Updated 04/15/20 @ 17:05 by Louis Spence MD) History of Family History (Updated 04/15/20 @ 17:05 by Louis Spence MD) Other Diabetes Denies family history of Clotting disorder Anesthesia complication Social History (Updated 04/15/20 @ 17:06 by Louis Spence MD) Smoking and tobacco status: current every day smoker Lives independently: Yes Marital status details: Data Anesthesia CBC & Chem 7: 04/15/20 14:23 04/15/20 14:23 Other Labs: Laboratory Results - last 48 hr 04/15/20 04/15/20 04/15/20 14:23 14:23 14:23 WBC 14.8 H RBC 3.95 L Hgb 12.1 Hct 36.7 L MCV 92.9 MCH 30.6 MCHC 33.0 RDW 12.2 Plt Count 564 H MPV 7.9 Neut % (Auto) 85.3 Lymph % (Auto) 7.4 [place] % (Auto) 5.5 Eos % (Auto) 0.3 Baso % (Auto) 0.4 Neut # (Auto) 12.67 H Lymph # (Auto) 1.1 [place] # (Auto) 0.8 Eos # (Auto) 0.0 Baso # (Auto) 0.1 Nucleated RBC % (auto) 0 Nucleated RBCs # 0.0 Sodium 131 L Potassium 4.4 Chloride 94 L Carbon Dioxide 24 Anion Gap 17.4 BUN 10 Creatinine 0.8 GFR Calculation 74.7 L Glucose 213 H Calculated Osmolality 277 L Lactic Acid 1.4 Calcium 9.0 Total Bilirubin 0.3 AST 24 ALT 43 H Alkaline Phosphatase 108 H Total Protein 7.2 Albumin 3.6 Globulin 3.6 Lipase 33 Urine Color Urine Appearance Urine pH Ur Specific [place] Urine Protein Urine Glucose (UA) Urine Ketones Urine Blood Urine Nitrate Urine Bilirubin Urine Urobilinogen Ur Leukocyte Esterase Urine RBC Urine WBC Ur Squamous Epith Cells Ur Transition Epith Cell Amorphous Sediment Urine Bacteria Urine Mucus 04/15/20 15:09 WBC RBC Hgb Hct MCV MCH MCHC RDW Plt Count MPV Neut % (Auto) Lymph % (Auto) [place] % (Auto) Eos % (Auto) Baso % (Auto) Neut # (Auto) Lymph # (Auto) [place] # (Auto) Eos # (Auto) Baso # (Auto) Nucleated RBC % (auto) Nucleated RBCs # Sodium Potassium Chloride Carbon Dioxide Anion Gap BUN Creatinine GFR Calculation Glucose Calculated Osmolality Lactic Acid Calcium Total Bilirubin AST ALT Alkaline Phosphatase Total Protein Albumin Globulin Lipase Urine Color Yellow Urine Appearance Hazy A Urine pH 7 Ur Specific [place] 1.000 L Urine Protein 1+ H Urine Glucose (UA) Norm Urine Ketones Negative Urine Blood 3+ H Urine Nitrate Negative Urine Bilirubin Neg Urine Urobilinogen Norm Ur Leukocyte Esterase 2+ H Urine RBC 25-40 H Urine WBC 80-100 H Ur Squamous Epith Cells 25-40 H Ur Transition Epith Cell 5-10 Amorphous Sediment Not Reportable Urine Bacteria 2+ H Urine Mucus 1+ Cardiac Studies: No Data to Display
--- NOTE | 2020-04-15 18:22 | SUR.PHASEI ---
1816 PATIENT TO PACU FROM OR. TALKING. C/O PAIN TO THROAT.
--- NOTE | 2020-04-15 18:28 | PM.PACU ---
PACU note PACU note: Good resp effort Post-Anesthesia Exam: awake and vital signs stable Disposition: admitted
--- NOTE | 2020-04-15 18:48 | SUR.PHASEI ---
1834 PATIENT TO MED SURG FROM PACU. NO DISTRESS. TOLERATING ICE CHIPS. AMBULATORY FROM GURNEY TO BED WITH STEADY GAIT.
[2020-04-15] MEDS: dextrose 5%-ns + KCl 20 20 MEQ/1,000 ML BAG 100 MEQ IV (20:02)
[2020-04-15] MEDS: docusate sodium 100 mg Capsule PO (20:03)
[2020-04-15] MEDS: metoprolol tartrate 25 mg Tablet PO (20:03)
[2020-04-15] MEDS: escitalopram 10 mg Tablet PO (22:57)
[2020-04-15] MEDS: zolpidem 5 mg Tablet PO (23:49)
[2020-04-16] VITALS: BP 135/82; PULSE 73; RESP 20; TEMP 36.9; O2SAT 93
[2020-04-16 01:45] VITALS: BP 134/75; PULSE 74; RESP 18; TEMP 36.8; O2SAT 93
[2020-04-16 05:17] LABS: Basophils % 0.2 %; Eosinophils % 0.1 %; Hematocrit 37.1 % (37.0-47.0); Hemoglobin 11.9 g/dL (11.5-15.3); Lymphocytes # 0.9 10^3/uL (0.8-4.8); Lymphocytes % 7.4 %; Mean Corpuscular HGB Conc 32.1 g/dL (30.0-36.0); Mean Corpuscular Hemoglobin 30.3 pg (28.0-34.0); Mean Corpuscular Volume 94.4 fL (81-99); Mean Platelet Volume 8.1 fL (7.4-10.4); Monocytes # 0.5 10^3/uL (0.2-0.9); Monocytes % 3.7 %; Neutrophils # 10.76 10^3/uL (1.8-7.7); Neutrophils % 87.5 %; Nucleated Red Blood Cells % 0 %; Platelet Count 527 10^3/cmm (130-400); Red Blood Count 3.93 10^6/uL (4.1-5.3); Red Cell Distribution Width 12.1 % (12.1-15.1); White Blood Count 12.3 10^3/uL (4.0-10.0)
[2020-04-16 05:35] VITALS: BP 135/79; PULSE 69; RESP 18; TEMP 36.8; O2SAT 92
[2020-04-16 05:45] LABS: Anion Gap 13.1 (5-19); Blood Urea Nitrogen 8 mg/dL (6-20); Calcium 9.1 mg/dL (8.5-10.5); Carbon Dioxide 25 mmol/L (22-29); Chloride 104 mmol/L (98-107); Glomerular Filtration Rate 128.6 mL/min (90-130); Glucose 194 mg/dL (65-115); Osmolality Calculated 288 mOsm/kg (285-295); Potassium 5.1 mmol/L (3.5-5.1); Sodium 137 mmol/L (136-145)
[2020-04-16] MEDS: dextrose 5%-ns + KCl 20 20 MEQ/1,000 ML BAG 100 MEQ IV (06:27)
[2020-04-16 07:23] VITALS: BP 145/78; PULSE 73; RESP 16; TEMP 36.8; O2SAT 92
--- NOTE | 2020-04-16 08:45 | PM.DCS ---
Discharge Providers Date of Admission: 04/15/20 17:37 Date of Discharge: April 16, 2020 Attending Provider at Admission: Louis Spence MD Attending Provider at Discharge: Louis Spence MD Diagnoses at Discharge Discharge Diagnosis (1) Extrinsic ureteral obstruction: Status: Acute (2) Hydronephrosis of right kidney: Status: Acute (3) Pelvic lymphadenopathy: Status: Acute (4) Abnormal ultrasound of uterus: Status: Acute (5) Depression with anxiety: Status: Acute Reason for Visit Reason for Visit: ABDOMEN PAIN Hospital Course Hospital Course Admitted through the emergency department on 04/15/2020 for severe right flank pain consistent with renal colic in the absence of infection. 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 Other findings on the CT scan included fluid-filled dilated uterus with suspicion of cervical area thickening and retroperitoneal lymphadenopathy. The level of the obstructed ureter could not be clearly ascertained but there was no clear evidence of a stone or other intrinsic process. She was taken to the operating room emergently and a right retrograde ureteropyelogram demonstrated a very narrowed ureter consistent with extrinsic type compression involving about 3 cm of the distal ureter approximately 1.5 cm above the right ureteral orifice. The remainder of the ureter proximal to that narrowed component was markedly dilated and tortuous. Ureteroscopy revealed no intrinsic scar tissue or pathologic process pointing to an extrinsic process again more consistent with the findings on the CT scan. A 7 Cong[place] by 28 cm double-pigtail stent was placed without difficulty after ureteroscopy and the procedure completed. Dr. Mims was kind enough to review the imaging studies preoperatively and recommended full work-up on outpatient basis. On postoperative day #1 she was much improved with no significant persistent renal colic. No fever or chills or other complicating variables. I talked to her at length about the findings and the concern for potential gynecologic neoplastic process that could account for this type of ureteral obstruction. I also reviewed again with Dr. Mims these findings and he was willing to work her into his clinic this coming week. The patient was instructed on the importance of follow-up both with ADDICTION COUNSELOR as well as with me for management of the stent. I will see her back in about 3 months with anticipation of changing the stent but that may change pending additional ADDICTION COUNSELOR work-up. On postoperative day #1 she was felt to be a good candidate for further convalescence at home. She was discharged in stable condition. She had asked for the next week off of work in order to recover from her significant lack of sleep and pain that she has been putting up with for a couple weeks. She was provided a note stating that preference. No other significant restrictions were placed on her activity and this was also reviewed with her. Physical Exam Const: COMMON NORMALS: no acute distress, alert and well nourished GENERAL APPEARANCE: well kempt and well developed ORIENTATION/CONSCIOUSNESS: not confused HENMT: COMMON NORMALS: normocephalic and atraumatic HEAD & SCALP: normocephalic and atraumatic Eye: COMMON NORMALS: conjunctivae normal and no scleral icterus CONJUNCTIVA: Yes conjunctivae normal Neck/C-Spine: COMMON NORMALS: full ROM GENERAL: Yes normal visual inspection Resp: COMMON NORMALS: normal respiratory effort EFFORT & INSPECTION: No labored and No Actively coughing Extremity: COMMON NORMALS: no clubbing, cyanosis or edema Neuro: COMMON NORMALS: no focal motor deficits SENSORIUM/ORIENTATION: Yes alert Psych: COMMON NORMALS: mental status grossly normal APPEARANCE: Yes grossly normal and Yes well kempt ATTITUDE: Yes calm and Yes engaged Skin: COMMON NORMALS: no rashes or lesions noted and no jaundice GENERAL SKIN EXAM: no rashes or lesions noted Discharge Data Data Completed and Pending: Completed Studies During Hospitalization Category Date Time Status CT abdomen pelvis w con* [id number] Urge nt Cat Scan 04/15/20 14:13 Completed US pelvic complet e* [id number] Urgent Ultrasound 04/15/20 16:19 Completed Pending at discharge Category Date Time Status C-arm FL for Urol ogy Routine Exams 04/15/20 17:31 Taken Urinalysis Stat Lab 04/15/20 16:21 Uncollected Labs from last 24 hours 04/16/20 04/16/20 04/15/20 04:50 04:50 15:09 WBC 12.3 H RBC 3.93 L Hgb 11.9 Hct 37.1 MCV 94.4 MCH 30.3 MCHC 32.1 RDW 12.1 Plt Count 527 H MPV 8.1 Neut % (Auto) 87.5 Lymph % (Auto) 7.4 [place] % (Auto) 3.7 Eos % (Auto) 0.1 Baso % (Auto) 0.2 Neut # (Auto) 10.76 H Lymph # (Auto) 0.9 [place] # (Auto) 0.5 Eos # (Auto) 0.0 Baso # (Auto) 0.0 Nucleated RBC % (a uto) 0 Nucleated RBCs # 0.0 Sodium 137 Potassium 5.1 Chloride 104 Carbon Dioxide 25 Anion Gap 13.1 BUN 8 Creatinine 0.5 GFR Calculation 128.6 Glucose 194 H Calculated Osmolal ity 288 Lactic Acid Calcium 9.1 Total Bilirubin AST ALT Alkaline Phosphata se Total Protein Albumin Globulin Lipase Urine Color Yellow Urine Appearance Hazy A Urine pH 7 Ur Specific Gravit y 1.000 L Urine Protein 1+ H Urine Glucose (UA) Norm Urine Ketones Negative Urine Blood 3+ H Urine Nitrate Negative Urine Bilirubin Neg Urine Urobilinogen Norm Ur Leukocyte Jyotsna ase 2+ H Urine RBC 25-40 H Urine WBC 80-100 H Ur Squamous Epith Cells 25-40 H Ur Transition Epit h Cell 5-10 Amorphous Sediment Not Reportable Urine Bacteria 2+ H Urine Mucus 1+ 04/15/20 04/15/20 04/15/20 14:23 14:23 14:23 WBC 14.8 H RBC 3.95 L Hgb 12.1 Hct 36.7 L MCV 92.9 MCH 30.6 MCHC 33.0 RDW 12.2 Plt Count 564 H MPV 7.9 Neut % (Auto) 85.3 Lymph % (Auto) 7.4 [place] % (Auto) 5.5 Eos % (Auto) 0.3 Baso % (Auto) 0.4 Neut # (Auto) 12.67 H Lymph # (Auto) 1.1 [place] # (Auto) 0.8 Eos # (Auto) 0.0 Baso # (Auto) 0.1 Nucleated RBC % (a uto) 0 Nucleated RBCs # 0.0 Sodium 131 L Potassium 4.4 Chloride 94 L Carbon Dioxide 24 Anion Gap 17.4 BUN 10 Creatinine 0.8 GFR Calculation 74.7 L Glucose 213 H Calculated Osmolal ity 277 L Lactic Acid 1.4 Calcium 9.0 Total Bilirubin 0.3 AST 24 ALT 43 H Alkaline Phosphata se 108 H Total Protein 7.2 Albumin 3.6 Globulin 3.6 Lipase 33 Urine Color Urine Appearance Urine pH Ur Specific Gravit y Urine Protein Urine Glucose (UA) Urine Ketones Urine Blood Urine Nitrate Urine Bilirubin Urine Urobilinogen Ur Leukocyte Jyotsna ase Urine RBC Urine WBC Ur Squamous Epith Cells Ur Transition Epit h Cell Amorphous Sediment Urine Bacteria Urine Mucus Vitals: Last Vital Signs Temp 98.3 F 04/16/20 07:23 Pulse 73 04/16/20 07:23 Resp 16 04/16/20 07:23 BP 145/78 04/16/20 07:23 Pulse Ox 92 04/16/20 07:23 Discharge Plan Discharge Patient Disposition: Home Condition: Stable Prescriptions: New sulfamethoxazole-trimethoprim 800-160 mg tablet 1 tab PO BID 7 Days Qty: 14 RF: 1 Continued escitalopram oxalate 10 mg Tablet 10 mg PO DAILY RF: 0 metoprolol tartrate 25 mg Tablet 25 mg PO BID RF: 0 Discharge Orders: Discharge Order (Routine); Ordered 04/16/20 Ordered By: Louis Spence Referrals: Louis Spence MD [Physician] - 3 months ([facility] [place]) Heladio Mims MD [Physician] - 1-3 days (Please call Dr. Mims's office tomorrow morning to arrange a work in appointment for this week per his request.) Discharge Diet: Usual diet Discharge Activity: Increase activity as tolerated Patient Instructions: Cystoscopy, Sulfamethoxazole/Trimethoprim (By mouth), Ureteral Stent Placement (DC) Activity Restrictions/Additional Instructions: 1. I will plan on seeing you back in my office in about 3 months with a plain x-ray of your abdomen. At that time we will need to make plans for changing the stent if that is still appropriate. 2. Please call Dr. Mims's office tomorrow morning to schedule a consult with him sometime this week. Stand Alone Forms: Work/School Release Discharge Attestations Time Spent in Discharge Care*: greater than 30 min Quality Metrics Clinical Quality Measures During this hospital stay, did patient experience: None Coding Level of Care Code Acute Flight Readiness Technician for g Fwd Diagnoses Extrinsic ureteral obstruction N13.5 Hydronephrosis of right kidney N13.30 Pelvic lymphadenopathy R59.0 Abnormal ultrasound of uterus R93.5 Depression with anxiety F41.8
[2020-04-16 09:27] VITALS: BP 145/78; PULSE 73; RESP 16; TEMP 36.8; O2SAT 92
--- NOTE | 2020-04-16 10:09 | PC.NURSE ---
Patient antibiotic script printed instead of being sent electronically to local pharmacy. Patient had already left facility when this was discovered. Patient was called and asked what pharmacy she would like to use. Patient was given the choice of [facility] or [facility] due to it being Friday and those pharmacies being the only two that filled prescriptions on weekends. Patient refused either one and wanted the script sent to [facility]. I verbalized the importance of starting the antibiotic as soon as possible. Patient stated she would chart picker the prescription tomorrow first thing when pharmacy opened.
--- NOTE | 2020-04-17 08:58 | PC.RESP ---
SMOKING CESSATION INFORMATION SENT TO PATIENT.
== END 2020-04-16 10:12 | disposition home or self-care (01) ==
LOC: ER 14:37 → OR 16:25 → MEDSURG 17:38
PROVIDERS: Admitting Provider Urology; Emergency Provider Emergency Medicine; Visit Provider Urology
PROC: 0TJB8ZZ Inspection of Bladder, Via Natural or Artificial Opening Endoscopic (ICD-10-PCS; CPT 52000; principal; 2020-04-15 17:20)
PROC: (CPT 74420; 2020-04-15 17:20)
PROC: (CPT 50605; 2020-04-15 17:20)
PROC: 0TJ98ZZ Inspection of Ureter, Via Natural or Artificial Opening Endoscopic (ICD-10-PCS; CPT 52351; 2020-04-15 17:20)
DX: N13.1 Hydronephrosis with ureteral stricture, not elsewhere classified (principal); I10 Essential (primary) hypertension; K59.00 Constipation, unspecified; Z78.0 Asymptomatic menopausal state; F17.210 Nicotine dependence, cigarettes, uncomplicated; R59.0 Localized enlarged lymph nodes; R93.89 Abnormal findings on diagnostic imaging of other specified body structures; F41.8 Other specified anxiety disorders
CPT/HCPCS: 52332; 52351; 12345; 36415; 74177; 76000; 76856; 80048; 80053; 81001; 83605; 83690; 85025; 96365; 99282; 99285; C1725; G0378; J0330; J1100; J1956; J2405; J2704; J2710; J3010; J3490; J7030; Q9967

== ENCOUNTER → 2020-04-20 15:04 | Outpatient (BNVA) | payer MEDICAID, SELFPAY | PROVIDERS: Visit Provider Obstetrics & Gynecology | DX: C53.9 Malignant neoplasm of cervix uteri, unspecified (principal) | CPT/HCPCS: 88305 ==

== ENCOUNTER 2025-03-02 13:46 | Outpatient (CLI) | payer OTHER, SELFPAY ==
--- NOTE | 2025-03-02 14:05 | XR_ITS ---
WS: [id number] XR cervical spine 3V* [id number] REASON FOR EXAM: PAIN AND ROM DIFFICULTY FINDINGS: Reversal of the normal lordosis of the cervical spine. No significant compression deformity or focal lesion of the cervical vertebrae. There is moderate to significant narrowing of the C5-C6 and C6-7 disc spaces. There is moderate endplate sclerosis and osteophytosis C3-C5. Significant endplate sclerosis and osteophytosis C5-C7. Mild degenerative arthropathy in the facet C3-C7. 1 to 2 mm of anterolisthesis of C7 in relation to C6 and C6 in relation to C5. XR/XR cervical spine 3V* [id number] IMPRESSION: Cervical degenerative spondylosis as above.
--- NOTE | 2025-03-02 14:05 | XR_ITS ---
WS: [id number] XR lumbar spine 2-3V* [id number] REASON FOR EXAM: PAIN AND ROM DIFFICULTY FINDINGS: Normal lumbar spine curvatures. No significant lumbar vertebral body compression or focal lesion. Intervertebral disc spaces are intact and relatively well preserved. Mild degenerative arthropathy in the facet joints L4-S1. XR/XR lumbar spine 2-3V* [id number] IMPRESSION: Minimal lumbar degenerative spondylosis as above.
== END 2025-03-02 13:47 | disposition home or self-care (01) ==
PROVIDERS: PCP Physician Assistant; Visit Provider Emergency Medicine
DX: Z02.71 Encounter for disability determination (principal); M47.817 Spondylosis without myelopathy or radiculopathy, lumbosacral region; M47.812 Spondylosis without myelopathy or radiculopathy, cervical region; M43.12 Spondylolisthesis, cervical region
CPT/HCPCS: 72040; 72100